=== PATIENT | female | born 1990 | race Caucasian/White ===

== ENCOUNTER 2020-09-20 09:49 | Outpatient (CLI) | payer OTHER, SELFPAY ==
[2020-09-20 10:24] LABS: Basophils Percent Auto 0.1 % (0.2-1.2); Eosinophils Absolute Auto 0.1 K/mm3 (0-0.3); Eosinophils Percent Auto 1.5 % (0-4.4); Hematocrit 41.4 % (37.0-47.0); Immature Granulocyte Absolute 0.01 K/mm3 (0.00-0.031); Immature Granulocyte Percent A 0.1 % (0-0.5); Lymphocytes Absolute Auto 2.74 K/mm3 (0.9-3.2); Lymphocytes Percent Auto 34.8 % (18.3-44.2); Mean Corpuscular HGB Conc 33.8 g/dl (32-36); Mean Corpuscular Hemoglobin 29.6 pg (26-34); Mean Corpuscular Volume 87.5 fl (80-100); Mean Platelet Volume 9.7 fl (7.4-10.4); Monocytes Absolute Auto 0.5 K/mm3 (0.1-0.6); Monocytes Percent Auto 6.6 % (2.6-8.5); Neutrophils Absolute Auto 4.5 K/mm3 (1.3-6.7); Neutrophils Percent Auto 56.9 % (45.5-73.1); Platelet Count Result 354 k/mm3 (150-375); Red Blood Count 4.73 M/mm3 (4.2-5.4); Red Cell Distribution Width 11.7 % (11.5-14.5); White Blood Count 7.9 K/mm3 (4.5-10.0)
[2020-09-20 10:50] LABS: Cholesterol 237 mg/dL (0-200); HDL Direct 40 mg/dL; Triglycerides 236 mg/dL (<150)
[2020-09-20 10:55] LABS: Alanine Aminotransferase 34 U/L (4-35); Albumin Level 4.2 g/dL (3.5-5.1); Alkaline Phosphatase 56 U/L (38-126); Anion Gap 7 mmol/L (8-16); Aspartate Amino Transferase 33 U/L (14-36); Bilirubin,Total 0.7 mg/dL (0.2-1.3); Blood Urea Nitrogen 9 mg/dL (7-17); Calcium 8.9 mg/dL (8.4-10.2); Carbon Dioxide 27 mmol/L (22-30); Chloride 105 mmol/L (98-107); Estimated Glomerular Filt Rate > 60; Glucose 91 mg/dL (65-105); Potassium 4.4 mmol/L (3.4-5.0); Sodium 139 mmol/L (137-145)
[2020-09-20 11:01] LABS: LDL Cholesterol Direct 141 mg/dL
[2020-09-24 06:35] LABS: Prolactin 7.3 ng/mL (***)
== END 2020-09-20 09:50 | disposition home or self-care (01) ==
PROVIDERS: PCP Nurse Practitioner; Referring Provider Nurse Practitioner; Visit Provider Nurse Practitioner Obstetrics & Gynecology
DX: N93.9 Abnormal uterine and vaginal bleeding, unspecified (principal)
CPT/HCPCS: 36415; 80053; 80061; 82306; 84146; 84443; 85025

== ENCOUNTER → 2021-01-11 03:31 | Outpatient (CLI) | payer OTHER, SELFPAY ==
[2021-01-11 19:46] LABS: SARS-CoV-2 RNA PCR Negative
== END ==
PROVIDERS: PCP Emergency Medicine; Visit Provider Obstetrics & Gynecology
DX: Z01.812 Encounter for preprocedural laboratory examination (principal); Z20.822 Contact with and (suspected) exposure to COVID-19
CPT/HCPCS: C9803; U0003; U0005

== ENCOUNTER 2021-01-15 01:23 | Day surgery (SDC) | payer OTHER, SELFPAY ==
[2021-01-01 15:13] VITALS: BMI 35.9
[2021-01-15] VITALS (8 sets, daily range): BP systolic 112–147; BP diastolic 60–91; PULSE 63–84; RESP 12–21; TEMP 36.3–36.5; O2SAT 95–100
--- NOTE | 2021-01-15 08:22 | P.PNAN_ITS ---
Anes - Initial Pre Proc Eval Procedure: Operation Date: 01/15/21 09:30 Proposed Procedures p Laparoscopic Bilateral Salpingectomy, Hysteroscopy with Nelly Endometrial Ablation - Virginia Cohen MD Date/Time: 01/15/21 08:22 Surgeon: Virginia Cohen MD Pre Op Diagnosis: Menorrhagia Patient Data Age: 30 Gender: F Height: 5 ft 5 in Weight: 97.98 kg Allergies Allergy/AdvReac Type Severity Reaction Status Date / Time No Known Allergies Allergy Unverified 01/15/21 07:46 Home Medications Medication Instructions Recorded Confirmed Type loratadine [Claritin] 10 mg PO DAILY PRN 01/01/21 01/15/21 History cqftmfauosqv-Ku-wrnv-minerals 1 tablet PO DAILY 01/01/21 01/15/21 History [Women's Daily Multivitamin] turmeric 400 mg PO 3XW 01/01/21 01/15/21 History Patient hx anesthesia problems: none Family hx anesthesia problems: none [facility] Past Medical History Medical History (Updated 01/15/21 @ 08:22 by Pato Patel MD) Obesity Surgical History Surgical History (Updated 01/15/21 @ 08:24 by Pato Patel MD) History of cholecystectomy Social History Social History Smoking packs per day: 0.5 Smoking cigarettes per day: 10.0 Years smoked: 7 Smoking pack-years: 3.50 Smoking status: Former smoker Tobacco type: cigarettes Smoking end date: 01/02/14 Alcohol intake: current Drinks per week: 6 Alcohol use details: [employer] Substance use: never Living arrangements: with family Spiritual care concerns: No Anes - Eval Final PreProcedure Day of Procedure 01/15/21 08:22 Patient weight: obese Heart: regular rate and rhythm Lungs: clear to auscultation Airway: Mallampati scale class II Neurological: alert and oriented Last oral intake: >/= 8 hours ASA classification: II Emergent: no Anesthetic plan: proceed Anesthesia type and monitoring: general ETT and standard monitoring Informed Consent: The patient's anesthetic plan and its attendant risks and benefits were discussed with the patient/family/POA. Questions were solicited and answers provided to the satisfaction of the patient/family/POA.
--- NOTE | 2021-01-15 08:24 | WPDHPUPDATE1 ---
History and Physical Update Update Date/Time: 01/15/21 08:24 History and Physical has been reviewed, including an updated exam of the patient. There are NO changes in the patient's condition. Risks, benefits, and alternatives have been discussed and questions answered. Patient agrees to proceed with procedure.
[2021-01-15] MEDS: ACETAMINOPHEN 500 MG TABLET 1000 MG PO (08:28)
[2021-01-15] MEDS: LACTATED RINGERS 1,000 ML 30 ML IV CONT ×2 (08:30→10:45)
[2021-01-15] MEDS: KETOROLAC 15 MG/ML VIAL (*BKC) IV PUSH (08:35)
--- NOTE | 2021-01-15 10:02 | SUR.OPER ---
noted right front tooth has chip prior to intubation.
--- NOTE | 2021-01-15 10:53 | PM.PROC ---
Procedure Note - Detailed Date of procedure: 01/15/21 Pre-op diagnosis: Menorrhagia Post-op diagnosis: same Procedure performed: Laparoscopic bilateral salpingectomy, Endometrial Ablation with Hysteroscopy Description of procedure: Patient was taken the operating room. She has prepped draped in the dorsal lithotomy position after induction of general anesthesia. A 5 mm abdominal incision was made in left upper quadrant of the abdomen with scalpel. A 5 mm trocars inserted the intra-abdominal cavity under direct visualization of the scope. Pneumoperitoneum was achieved. A 5 mm periumbilical incision was made using a scalpel on the abdominal scan. A 5 mm trocar was inserted the intra-abdominal cavity under visualization of the scope. A 5 mm incision made left lower quadrant of the abdomen. A 5 mm trocar was inserted the intra-abdominal cavity and direct visualization of the scope. The bilateral fallopian tubes were removed. The paratubal tissue in the area of the uterus was grasped with the LigaSure cautery and transected after being cauterized. The paratubal tissue from the ovary to the uterine cornu was cauterized and transected with LigaSure cautery. This was all done in a bilateral fashion. The tube was transected at the area of the uterine cornua and the tubes was removed through the 5 mm trocar site. Our attention was then turned to the endometrial ablation portion of the procedure. A speculum was placed in the vagina. The cervix was grasped with a tenaculum. The cervix was dilated to approximately 8 mm with Morley dilators. The hysteroscope was inserted. And the below findings were noted. Measurements of the cervix were taken using the uterine sound and the hysteroscope. The intrauterine cavity measurements were entered into the hand piece of the device. The device was inserted the intrauterine cavity. The array was expanded. The balloon cuff was inflated. The uterus was airtight. The energy and safety cycles within initiated. They were completed under 3 minutes. The balloon cuff was collapsed, the array was collapsed, and the device was removed the uterine cavity. the hysteroscope was reinserted and the cavity was well desiccated, it was clearly observed. Hysteroscope was withdrawn. The tenaculum was removed. The speculum was removed. The patient tolerated the procedure well. She was taken to recover room in stable condition. Anesthesia: GETA Surgeon: Virginia Cohen MD Estimated blood loss (mL): 10 Drains: No Packing: No Pathology: none sent Complications: No immediate complications Condition: stable Disposition: PACU Findings: Normal female pelvic anatomy.
[2021-01-15] MEDS: HYDROmorphone HCL INJ (*CRX) 1 MG/ML SYR 0.25 MG IV PUSH ×3 (10:54→11:14)
[2021-01-15] MEDS: oxyCODONE HCL (*CRX) 5 MG TAB IR PO (11:59)
--- NOTE | 2021-02-01 10:11 | PM.IMHP ---
H&P: HPI History of Present Illness Date/Time: 02/01/21 10:11 this patient is a 31-year-old female with severe menorrhagia and unwanted fertility. We have agreed to perform endometrial ablation and laparoscopic bilateral tubal ligation. Patient understands the procedure. She understands there are risks. She understands that injuries may occur that result in hospitalization, more surgery, and severe illness. Chief Complaint: heavy vaginal bleeding Review of Systems Constitutional: Constitutional: Reports no additional constitutional complaints, Denies fatigue, Denies headache(s), Denies lethargy and Denies weakness Eyes: Eyes: Reports no additional eye complaints, Denies blurry vision and Denies photophobia ENT: Reports as per HPI, Denies headache(s) and Denies neck pain Cardiovascular: Cardiovascular: Denies chest pain, Denies diaphoresis, Denies leg edema, Denies palpitations and Denies dyspnea Respiratory: Respiratory: Denies hemoptysis, Denies dyspnea and Denies wheezing Gastrointestinal: Gastrointestinal: Denies abdominal pain, Denies melena, Denies bloating, Denies hematochezia, Denies nausea and Denies vomiting Genitourinary: Genitourinary: Reports no additional female genitourinary complaints Musculoskeletal: Musculoskeletal: Denies joint swelling, Denies neck pain, Denies numbness and Denies stiffness Neurologic: Denies Abnormal speech present, Denies confusion, Denies headache(s), Denies numbness and Denies weakness Psychiatric: Psychiatric: Denies anxiety, Denies confusion, Denies depression, Denies homicidal ideation and Denies suicidal ideation Endocrine: Endocrine: Denies fatigue and Denies palpitations Allergic/Immunologic: Allergic/Immunologic: Denies wheezing [facility] Past Medical History Medical History (Updated 02/01/21 @ 10:13 by Virginia Cohen MD) Obesity Surgical History Surgical History (Updated 01/15/21 @ 08:24 by Pato Patel MD) History of cholecystectomy Social History Social History Smoking packs per day: 0.5 Smoking cigarettes per day: 10.0 Years smoked: 7 Smoking pack-years: 3.50 Smoking status: Former smoker Tobacco type: cigarettes Smoking end date: 01/02/14 Alcohol intake: current Drinks per week: 6 Alcohol use details: [employer] Substance use: never Living arrangements: with family Spiritual care concerns: No Meds Home Medications and Allergies Home Medications Medication Instructions Recorded Confirmed Type loratadine [Claritin] 10 mg PO DAILY PRN 01/01/21 01/15/21 History lbmrtgxbopsc-Kw-efrc-minerals 1 tablet PO DAILY 01/01/21 01/15/21 History turmeric 400 mg PO 3XW 01/01/21 01/15/21 History hydrocodone-acetaminophen 1 - 2 tablet PO Q4H PRN #10 tablet 01/15/21 Rx Allergies Allergy/AdvReac Type Severity Reaction Status Date / Time No Known Allergies Allergy Unverified 01/15/21 07:46 Exam Const: General: healthy appearing, comfortable and no acute distress; No confusion Orientation/consciousness: No confusion Eyes: Direct Ophthalmoscopy: No photophobia Resp: Auscultation: clear to auscultation bilaterally, no rales, no rhonchi and no wheezes Cardio: Rate: regular rate Heart sounds: no click, no murmurs and no rubs GI: Inspection: non-distended GI Palp: No abdominal tenderness Auscultation: normal bowel sounds Neuro: General: No confusion Speech: No Abnormal speech present Extrem: General: normal to inspection, no pedal edema and no calf tenderness Assessment and Plan Assessment and plan (1) Menorrhagia: Code(s): N92.0 - Excessive and frequent menstruation with regular cycle Status: Acute (2) Unwanted fertility: Code(s): Z30.09 - Encounter for other general counseling and advice on contraception Status: Acute Additional Plan this patient is a 31-year-old female with severe menorrhagia and unwanted fertility.
== END 2021-01-15 13:05 | disposition home or self-care (01) ==
PROVIDERS: PCP Nurse Practitioner; Visit Provider Obstetrics & Gynecology
PROC: 0UDB8ZZ Extraction of Endometrium, Via Natural or Artificial Opening Endoscopic (ICD-10-PCS; CPT 58558; principal; 2021-01-15 09:30)
DX: N92.0 Excessive and frequent menstruation with regular cycle (principal); E66.9 Obesity, unspecified; Z68.36 Body mass index [BMI] 36.0-36.9, adult
CPT/HCPCS: 58563; 58661; 88302; 88305; A9270; J0330; J1100; J1170; J1885; J2250; J2405; J2704; J3010; J7030; J7120

== ENCOUNTER 2021-03-27 16:19 | Outpatient (CLI) | payer OTHER, SELFPAY ==
--- NOTE | ~2021-03-27 | XR_ITS ---
EXAMINATION: XR foot RT min 3V DATE: 03/27/2021 17:02 INDICATION: Bump on the first and second metatarsals post injury TECHNIQUE: Dorsoplantar, two oblique and lateral views of the right foot were obtained. COMPARISON: None. FINDINGS: Alignment is normal. No fracture. Mild osteoarthritis at the first metatarsophalangeal joint. Remaini ng joint spaces are normal. Achilles and plantar calcaneal spurs with additional small enthesophyte a t the distal tip of the lateral malleolus. Couple small heterotopic ossicles near the tip of the medi al malleolus. Focal soft tissue swelling dorsal to the metatarsals. IMPRESSION: 1. No acute osseous abnormality. 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
== END 2021-03-27 16:20 | disposition home or self-care (01) ==
LOC: ANHIMG 16:23
PROVIDERS: PCP Nurse Practitioner; Visit Provider Nurse Practitioner
DX: M77.31 Calcaneal spur, right foot (principal); M19.071 Primary osteoarthritis, right ankle and foot; M79.89 Other specified soft tissue disorders
CPT/HCPCS: 73630

== ENCOUNTER 2021-08-23 10:35 | Emergency (ER) | payer OTHER, SELFPAY ==
--- NOTE | ~2021-08-23 | XR_ITS ---
EXAMINATION: XR thoracic spine 3V DATE: 08/23/2021 13:23 INDICATION: Upper back pain. TECHNIQUE: 3 views of thoracic spine were obtained. COMPARISON: None. FINDINGS: There is 7 degrees levocurvature of thoracic spine. Vertebral body heights are normal. Ther e is mildly decreased disc height at multiple levels in mid thoracic spine. There are endplate osteop hytes at most levels. IMPRESSION: 1. Mild thoracic spondylosis. 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
--- NOTE | ~2021-08-23 | XR_ITS ---
EXAMINATION: XR_CERV2-3V_CR DATE: 08/23/2021 13:23 INDICATION: Neck pain. TECHNIQUE: 4 views of cervical spine were obtained. COMPARISON: None. FINDINGS: There is 5 degrees levocurvature of cervicothoracic spine. Vertebral body heights are darwin l. There is mildly decreased disc height at C6-C7. The facet joints are unremarkable. No central ang l stenosis or prevertebral soft tissue swelling. IMPRESSION: 1. Mild degenerative disc disease at C6-C7. 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 [employer] [facility]
[2021-08-23 10:49] VITALS: BP 148/95; PULSE 76; RESP 14; TEMP 36.9; O2SAT 100
--- NOTE | 2021-08-23 12:55 | ED.GENADULT ---
HPI - General Adult General Chief complaint: Neck Pain/Injury Stated complaint: neck pain Time Seen by Provider: 08/23/21 12:05 Source: patient Mode of arrival: ambulatory Limitations: no limitations History of Present Illness HPI narrative: Patient presents for evaluation of new neck/back pain for the last 4 days. She indicates she woke from sleep with her symptoms believe she slept on it wrong . She usually sleeps in prone position with her arm beneath her. She usually wakes from sleep throughout the night a few times with the sensation that her arm is asleep . She states her pain is constant, although she did experience relief yesterday. She states she had recurrence of her pain this morning which has persisted since that time. She describes the pain as a pinched nerve . Her pain is severe. She has some radiation into proximal aspect of LUE. Movement makes her symptoms worse. She has not tried any therapies to assist with her symptoms. Related Data Home Medications Medication Instructions Recorded Confirmed loratadine [Claritin] 10 mg PO DAILY PRN 01/01/21 01/15/21 dcmpmritfhvk-Jm-sajm-minerals 1 tablet PO DAILY 01/01/21 01/15/21 turmeric 400 mg PO 3XW 01/01/21 01/15/21 Allergies Allergy/AdvReac Type Severity Reaction Status Date / Time No Known Allergies Allergy Verified 08/23/21 11:58 Review of Systems Review of Systems: CONSTITUTIONAL: Denies fever, chills, or sweats. EYES: Denies visual changes, redness, or discharge. ENT: Denies rhinorrhea, congestion, sore throat, or otalgia. CARDIOVASCULAR: Denies chest pain, palpitations, or edema. RESPIRATORY: Denies cough or dyspnea. GASTROINTESTINAL: Denies abdominal pain, nausea, vomiting, or diarrhea. GENITOURINARY: Denies dysuria or hematuria. SKIN: Denies rash or itching. MUSCULOSKELETAL: Reports neck pain and back pain. NEUROLOGIC: Denies headache, numbness, dizziness, or weakness. PSYCHIATRIC: Denies anxiety or depression. [facility] Past Medical History Medical History (Updated 08/23/21 @ 14:23 by Joao Nixon, BLU, BC) Obesity Surgical History Surgical History History of cholecystectomy History of tubal ligation Family History Family History Mother No pertinent past medical history Social History Social History Smoking packs per day: 0.5 Smoking cigarettes per day: 10.0 Years smoked: 7 Smoking pack-years: 3.50 Smoking status: Former smoker Tobacco type: cigarettes Smoking end date: 01/02/14 Alcohol intake: current Drinks per week: 6 Alcohol use details: [employer] Substance use: never Spiritual care concerns: No Exam Narrative: GENERAL: Well-appearing, well-nourished, and in no acute distress. HEAD: Normocephalic, atraumatic. EYES: PERRLA and EOMI. ENT: Nares clear, no rhinorrhea or epistaxis. Mucous membranes moist. Oropharynx without tonsillar hypertrophy exudate or other lesions. Bilateral TMs pearly hernández nonbulging NECK: Supple. No adenopathy or masses. No carotid bruits or JVD. Tenderness in left trapezius. No tenderness in midline of cervical spine CHEST: Clear to auscultation. No respiratory distress. No wheezes rales or rhonchi HEART: Regular rate and rhythm. No murmur heard. Normal peripheral pulses. ABDOMEN: Soft, nontender, nondistended, normal active bowel sounds. EXTREMITIES: Normal range of motion. No edema. BACK: Tenderness noted over musculature overlying left posterior ribs and in paraspinous muscles of thoracic spine on left SKIN: Warm, dry, no rash. NEURO: No focal deficits. Alert and oriented x3. PSYCH: Normal mood and affect. Course Course Emergency Course: This is a 31-year-old female who presented with complaints of neck pain. X-ray showed degenerative changes. She was given Toradol and F
[2021-08-23] MEDS: CYCLOBENZAPRINE HCL 10 MG TABLET PO (13:47)
[2021-08-23] MEDS: KETOROLAC (*BKC) 60 MG/2 ML VIAL IM (13:47)
[2021-08-23 14:45] VITALS: BP 126/89; PULSE 78; RESP 16; O2SAT 100
== END 2021-08-23 14:46 | disposition home or self-care (01) ==
PROVIDERS: Emergency Provider Nurse Practitioner
DX: M54.2 Cervicalgia (principal); M79.10 Myalgia, unspecified site; E66.9 Obesity, unspecified; Z87.891 Personal history of nicotine dependence; M47.814 Spondylosis without myelopathy or radiculopathy, thoracic region; M50.323 Other cervical disc degeneration at C6-C7 level
CPT/HCPCS: 72040; 72072; 96372; 99283; A9270; J1885

== ENCOUNTER 2021-11-05 16:49 | Emergency (ER) | payer OTHER, SELFPAY ==
[2021-11-05 17:02] VITALS: BP 147/87; PULSE 74; RESP 16; TEMP 36.2; O2SAT 100
[2021-11-05 17:20] LABS: Basophils Percent Auto 0.1 % (0.2-1.2); Eosinophils Absolute Auto 0.2 K/mm3 (0-0.3); Eosinophils Percent Auto 2.1 % (0-4.4); Hematocrit 41.3 % (37.0-47.0); Hemoglobin 13.8 g/dL (12.0-15.0); Immature Granulocyte Absolute 0.03 K/mm3 (0.00-0.031); Immature Granulocyte Percent A 0.3 % (0-0.5); Lymphocytes Absolute Auto 2.56 K/mm3 (0.9-3.2); Lymphocytes Percent Auto 25.7 % (18.3-44.2); Mean Corpuscular HGB Conc 33.4 g/dl (32-36); Mean Corpuscular Hemoglobin 28.7 pg (26-34); Mean Corpuscular Volume 85.9 fl (80-100); Mean Platelet Volume 9.7 fl (7.4-10.4); Monocytes Absolute Auto 0.6 K/mm3 (0.1-0.6); Monocytes Percent Auto 5.6 % (2.6-8.5); Neutrophils Absolute Auto 6.6 K/mm3 (1.3-6.7); Neutrophils Percent Auto 66.2 % (45.5-73.1); Platelet Count Result 403 k/mm3 (150-375); Red Blood Count 4.81 M/mm3 (4.2-5.4)
[2021-11-05 17:31] LABS: Alanine Aminotransferase 48 U/L (4-35); Albumin Level 4.7 g/dL (3.5-5.1); Alkaline Phosphatase 67 U/L (38-126); Anion Gap 9 mmol/L (8-16); Aspartate Amino Transferase 43 U/L (14-36); Bilirubin,Total 0.8 mg/dL (0.2-1.3); Blood Urea Nitrogen 10 mg/dL (7-17); Calcium 9.1 mg/dL (8.4-10.2); Carbon Dioxide 25 mmol/L (22-30); Chloride 104 mmol/L (98-107); Estimated CRCL calculation 131 ml/min; Estimated Glomerular Filt Rate > 60; Glucose 101 mg/dL (65-110); Lipase 61 U/L (23-300); Potassium 4.1 mmol/L (3.4-5.0); Sodium 138 mmol/L (137-145)
[2021-11-05 17:37] VITALS: BP 136/92; PULSE 68; RESP 18; O2SAT 99
--- NOTE | 2021-11-05 18:45 | ED.ABDPAIN ---
HPI - Abdominal Pain General Chief Complaint: Abdominal Pain Stated Complaint: abd pain x 2 weeks Time Seen by Provider: 11/05/21 17:41 Source: patient, family and RN notes reviewed Mode of arrival: ambulatory Limitations: no limitations History of Present Illness HPI narrative: 31-year-old female presented to the emergency department for evaluation of 2 weeks of upper abdominal pain with associated nausea without vomiting. Patient reports he does have a history of GERD but does not take any medications for this. Patient denies any recent heavy use of NSAIDs. Patient denies any recent heavy alcohol consumption. Patient denies any hematemesis or hematochezia. Patient denies any prior history of ulcers. Related Data Home Medications Medication Instructions Recorded Confirmed loratadine [Claritin] 10 mg PO DAILY PRN 01/01/21 01/15/21 tesfwonhrazz-Tg-vzmy-minerals 1 tablet PO DAILY 01/01/21 01/15/21 turmeric 400 mg PO 3XW 01/01/21 01/15/21 Allergies Allergy/AdvReac Type Severity Reaction Status Date / Time No Known Allergies Allergy Verified 11/05/21 19:22 Review of Systems Review of Systems: CONSTITUTIONAL: Denies fever, chills, or sweats. EYES: Denies visual changes, redness, or discharge. ENT: Denies rhinorrhea, congestion, sore throat, or otalgia. CARDIOVASCULAR: Denies chest pain, palpitations, or edema. RESPIRATORY: Denies cough or dyspnea. GASTROINTESTINAL: Upper abdominal pain with associated nausea without vomiting GENITOURINARY: Denies dysuria or hematuria. SKIN: Denies rash or itching. MUSCULOSKELETAL: Denies back pain, joint pain, or myalgia. NEUROLOGIC: Denies headache, numbness, or weakness. All systems reviewed & are unremarkable except as noted in HPI and below PMFSH Past Medical History Medical History (Updated 11/08/21 @ 12:35 by David Blount MD) Obesity Surgical History Surgical History History of cholecystectomy History of tubal ligation Family History Family History Mother No pertinent past medical history Social History Social History Smoking packs per day: 0.5 Smoking cigarettes per day: 10.0 Years smoked: 7 Smoking pack-years: 3.50 Smoking status: Former smoker Tobacco type: cigarettes Smoking end date: 01/02/14 Alcohol intake: current Drinks per week: 6 Alcohol use details: [employer] Substance use: never Spiritual care concerns: No Exam Narrative: APPEARANCE: Well appearing, no pain, no distress, well-nourished. HEAD: normocephalic, atraumatic. EYES: PERRLA/EOMI, conjunctivae clear. NOSE: Normal no drainage NECK: Supple. No adenopathy, no masses. RESPIRATORY: Airway patent, respirations nonlabored. Clear to auscultation bilaterally, no rales, rhonchi, wheezing. CARDIOVASCULAR: Regular rate and rhythm without murmurs rubs or gallops. ABDOMINAL: Benign abdominal exam. Some epigastric tenderness to palpation. MUSCULOSKELETAL: Moves all extremities. Strength/ROM intact, No edema, No calf tenderness. NEURO: Alert. Cranial nerves II through XII intact. Grossly intact SKIN: Warm, dry. Normal Color Course Course Emergency Course: Patient did feel improved with treatment with a GI cocktail. Patient was also started on Protonix. Patient was updated on the results of her work-up and plan for home treatment. Patient was also encouraged to have close follow-up with GI. All questions and concerns were addressed. Vital Signs Vital signs: Vital Signs Temperature 97.1 F L 11/05/21 17:02 Pulse Rate 74 11/05/21 17:02 Respiratory Rate 16 11/05/21 17:02 Blood Pressure 147/87 H 11/05/21 17:02 Pulse Oximetry 100 11/05/21 17:02 Temperature 97.1 F L 11/05/21 17:02 Pulse Rate 65 11/05/21 21:53 Respiratory Rate 18 11/05/21 21:53 Blood Pre
[2021-11-05] MEDS: SODIUM CHLORIDE 0.9% IV 1,000 ML 999 ML IV CONT (19:02)
[2021-11-05] MEDS: ONDANSETRON INJ 4 MG/2 ML VIAL IV PUSH (19:02)
[2021-11-05 19:20] VITALS: BP 124/85; PULSE 82; RESP 16; O2SAT 99
[2021-11-05] MEDS: BELLADONNA ALK/PHENOB ELIX 10 ML, MAG HYDROX/ALUMINUM HYD/SIMETH 30 ML, LIDOCAINE HCL 2... PO (19:31)
[2021-11-05 19:32] LABS: Add Urine Microscopic? YES; Appearance Urine Cloudy (Clear); Bacteria Urine Trace /hpf; Bilirubin Urine Negative (Negative); Blood Urine Negative (Negative); Color Urine Yellow (Yellow); Glucose Urine UA Negative (Negative); Ketones Urine Negative (Negative); Leukocyte Esterase Ur Negative LEU/UL (Negative); Nitrate Urine Negative (Negative); Protein Urine Negative (Negative); Specific Grav Ur 1.015 (1.001-1.035); Squamous Epithelial Cell Urine Few /hpf (Few); Urobilinogen Urine Negative mg/dL (<2.0); WBC Urine 0-3 /hpf
[2021-11-05] MEDS: PANTOPRAZOLE SODIUM IV 40 MG VIAL IV PUSH (20:59)
[2021-11-05] MEDS: ACETAMINOPHEN 500 MG TABLET 1000 MG PO (20:59)
[2021-11-05] MEDS: KETOROLAC 15 MG/ML VIAL (*BKC) IV PUSH (21:19)
[2021-11-05 21:53] VITALS: BP 122/64; PULSE 65; RESP 18; O2SAT 99
== END 2021-11-05 21:54 | disposition home or self-care (01) ==
PROVIDERS: Emergency Provider Emergency Medicine
DX: K29.70 Gastritis, unspecified, without bleeding (principal); K21.9 Gastro-esophageal reflux disease without esophagitis; E66.9 Obesity, unspecified; Z68.35 Body mass index [BMI] 35.0-35.9, adult; Z87.891 Personal history of nicotine dependence
CPT/HCPCS: 36415; 80053; 81001; 81025; 83690; 85025; 96365; 96366; 96375; 99284; A9270; C9113; J1885; J2405; J7030; J7060

== ENCOUNTER 2024-02-23 20:49 | Emergency (ER) | payer OTHER, SELFPAY ==
--- NOTE | ~2024-02-23 | CT_ITS ---
EXAMINATION: CT abdomen pelvis w con DATE: 02/23/2024 22:11 INDICATION: Right lower quadrant abdominal pain. Right flank tenderness. TECHNIQUE: Computed tomography (CT) of the abdomen and pelvis was performed with 100 mL Omnipaque 350 intravenous contrast. Automated exposure control and iterative reconstruction technique were employe d. The dose-length product was 1239.68 mGy-cm. COMPARISON: None. FINDINGS: The visualized portions of the lung bases demonstrate mild atelectasis. No pleural effusion . The heart size is normal. No pericardial effusion. There is diffuse hepatic steatosis. The spleen i s normal. The gallbladder is absent. The pancreas, adrenal glands, and kidneys are normal. There are no dilated loops of bowel. The appendix is normal. There is a supraumbilical ventral hernia containin g fat. There are no pathologically enlarged lymph nodes. There is no free intraperitoneal fluid. Ther e is mild lumbar spondylosis. IMPRESSION: 1. Supraumbilical ventral hernia containing fat. 2. Diffuse hepatic steatosis. Reviewed, dictated and finalized at location E.
[2024-02-23 20:55] VITALS: BP 129/57; PULSE 70; RESP 16; TEMP 36.6; O2SAT 99
--- NOTE | 2024-02-23 21:01 | ED.ABDPAIN ---
HPI - Abdominal Pain General Chief Complaint: Abdominal Pain Stated Complaint: RLQ pain Time Seen by Provider: 02/23/24 21:00 Source: patient Mode of arrival: ambulatory Limitations: no limitations History of Present Illness HPI narrative: This is a 34-year-old female who presents to the ED with chief complaint of abdominal pain Times 2-3 days. Reports that it has localized to the right lower quadrant. Reports it is worsening and becoming more consistent. She has history of ovarian cysts and has had pain with these before but today feels different. specifically worse with certain movements. No specific alleviating factors. Denies N/V/ D. Denies fevers, chills, chest pain, shortness of breath, GI bleeding symptoms, urinary symptoms. Denies vaginal symptoms. Surgical history of tubal ligation, cholecystectomy Related Data Home Medications Medication Instructions Recorded Confirmed loratadine 10 mg tablet (Claritin) 10 mg PO DAILY PRN Congestion 01/01/21 01/15/21 miyjvchwaixc-Fc-epyv-minerals 18 1 tablet PO DAILY 01/01/21 01/15/21 mg-0.4 mg tablet turmeric 400 mg capsule 400 mg PO 3XW 01/01/21 01/15/21 Allergies Allergy/AdvReac Type Severity Reaction Status Date / Time No Known Allergies Allergy Verified 11/05/21 19:22 Review of Systems Review of Systems: All systems as dictated in [facility] Past Medical History Medical History (Updated 02/23/24 @ 23:34 by Sandeep Patterson PA-C) Obesity Surgical History Surgical History History of cholecystectomy History of tubal ligation Family History Family History Mother No pertinent past medical history Social History Social History Smoking packs per day: 0.5 Smoking cigarettes per day: 10.0 Years smoked: 7 Smoking pack-years: 3.50 Smoking status: Former smoker Tobacco type: cigarettes Smoking end date: 01/02/14 Alcohol intake: current Drinks per week: 6 Alcohol use details: [employer] Substance use: never Living arrangements: with family Spiritual care concerns: No Exam Narrative: GENERAL: Well-appearing, well-nourished, and in no acute distress. HEAD: Normocephalic, atraumatic. EYES: PERRLA and EOMI. ENT: Nares clear, no rhinorrhea or epistaxis. Mucous membranes moist. Oropharynx without tonsillar hypertrophy exudate or other lesions. NECK: Supple. No adenopathy or masses. CHEST: No respiratory distress. Clear to auscultation. No wheezes rales or rhonchi HEART: Regular rate and rhythm. No murmur heard. Normal peripheral pulses. ABDOMEN: right flank tenderness present. Soft, otherwise nontender, nondistended, normal active bowel sounds. MSK: Normal range of motion. No edema. SKIN: Warm, dry, no rash. NEURO: Alert and oriented x4. No focal deficits. PSYCH: Normal mood and affect. Course Vital Signs Vital signs: Vital Signs Temperature 97.8 F 02/23/24 20:55 Pulse Rate 70 02/23/24 20:55 Respiratory Rate 16 02/23/24 20:55 Blood Pressure 129/57 L 02/23/24 20:55 Pulse Oximetry 99 02/23/24 20:55 Temperature 97.8 F 02/23/24 20:55 Pulse Rate 67 02/23/24 23:55 Respiratory Rate 16 02/23/24 23:55 Blood Pressure 132/78 02/23/24 23:55 Pulse Oximetry 100 02/23/24 23:55 MDM - Abdominal Pain MDM Narrative Medical decision making narrative: This is a 34-year-old female who presents to the ED with chief complaint of lower abdominal pain for the past couple of days. Vitals are normal. Exam shows mild right-sided abdominal pain and right flank tenderness. Lab work is grossly unremarkable. UA is negative. CT abdomen pelvis with IV contrast: IMPRESSION: 1. Supraumbilical ventral hernia containing fat. 2. Diffuse hepatic steatosis.. On re-evaluation patient is well-
[2024-02-23 21:40] LABS: Basophils Percent Auto 0.2 % (0.2-1.2); Eosinophils Absolute Auto 0.3 K/mm3 (0-0.3); Eosinophils Percent Auto 2.8 % (0-4.4); Hematocrit 39.8 % (37.0-47.0); Hemoglobin 13.5 g/dL (12.0-15.0); Immature Granulocyte Absolute 0.03 K/mm3 (0.00-0.031); Immature Granulocyte Percent A 0.3 % (0-0.5); Lymphocytes Absolute Auto 4.05 K/mm3 (0.9-3.2); Lymphocytes Percent Auto 42.2 % (18.3-44.2); Mean Corpuscular HGB Conc 33.9 g/dl (32-36); Mean Corpuscular Hemoglobin 28.9 pg (26-34); Mean Corpuscular Volume 85.2 fl (80-100); Mean Platelet Volume 9.7 fl (7.4-10.4); Monocytes Absolute Auto 0.9 K/mm3 (0.1-0.6); Monocytes Percent Auto 8.9 % (2.6-8.5); Neutrophils Absolute Auto 4.4 K/mm3 (1.3-6.7); Neutrophils Percent Auto 45.6 % (45.5-73.1); Platelet Count Result 353 k/mm3 (150-375); Red Blood Count 4.67 M/mm3 (4.2-5.4); Red Cell Distribution Width 11.9 % (11.5-14.5); White Blood Count 9.6 K/mm3 (4.5-10.0)
[2024-02-23 21:49] LABS: Alanine Aminotransferase 65 U/L (6-35); Albumin Level 4.7 g/dL (3.5-5.1); Alkaline Phosphatase 54 U/L (38-126); Anion Gap 10 mmol/L (4-12); Aspartate Amino Transferase 42 U/L (14-36); Bilirubin,Total 0.6 mg/dL (0.2-1.3); Blood Urea Nitrogen 14 mg/dL (7-17); Calcium 9.4 mg/dL (8.4-10.2); Carbon Dioxide 25 mmol/L (22-30); Chloride 104 mmol/L (98-107); Estimated CRCL calculation 96 ml/min; Estimated Glomerular Filt Rate > 60; Glucose 98 mg/dL (65-110); Lipase 65 U/L (23-300); Potassium 3.8 mmol/L (3.4-5.0); Sodium 139 mmol/L (137-145)
[2024-02-23 22:55] LABS: Appearance Urine Clear (Clear); Bilirubin Urine Negative (Negative); Blood Urine Negative (Negative); Color Urine Yellow (Yellow); Glucose Urine UA Negative (Negative); Ketones Urine Negative (Negative); Leukocyte Esterase Ur Negative LEU/UL (Negative); Nitrate Urine Negative (Negative); Protein Urine Negative (Negative); Specific Grav Ur > 1.045 (1.001-1.035); Urobilinogen Urine 0.2 mg/dL (<2.0); pH Urine 7.5 (5.0-9.0)
[2024-02-23 23:23] LABS: Add Urine Microscopic? NO
[2024-02-23 23:55] VITALS: BP 132/78; PULSE 67; RESP 16; O2SAT 100
== END 2024-02-23 23:56 | disposition home or self-care (01) ==
PROVIDERS: Emergency Medicine; Emergency Provider Physician Assistant
DX: R10.31 Right lower quadrant pain (principal); Z87.891 Personal history of nicotine dependence
CPT/HCPCS: 36415; 74177; 80053; 81003; 81025; 83690; 85025; 99284; Q9967

== ENCOUNTER 2025-06-08 21:55 | Emergency (ER) | payer MEDICAID, SELFPAY ==
--- NOTE | ~2025-06-08 | CT_ITS ---
EXAMINATION: CT soft tissue neck wo con DATE: 06/09/2025 02:28 INDICATION: Ingested foreign body. TECHNIQUE: Computed tomography (CT) of the neck was performed without intravenous contrast. Automated exposure control and iterative reconstruction technique were employed. The dose-length product was 455.05 mGy-cm. COMPARISON: None FINDINGS: There are calcifications of the palatine tonsils bilaterally. There are no pathologically enlarged lymph nodes. There is mild mucosal thickening in the paranasal sinuses. The mastoid air cells are normal. There is mild cervical spondylosis. IMPRESSION: 1. No foreign body. Reviewed, dictated and finalized at location E. IMPRESSION: 1. No foreign body.
--- OUTSIDE RECORDS SUMMARY | 2025-06-08 21:58 | XMS_ITS | Clinical Summary ---
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 Primary Care Provider [phone] Allergies No known active allergies Medications amoxicillin-cla vulanate (AUGMENTIN) 875-125 mg per tabletIndicatio ns:Swelling of right upper eyelid,Tenderne ss over frontal sinus Take 1 tablet by mouth 2 (two) times a day for 7 days 14 tablet 05/14/2025 Active Problems No known active problems Encounters Date Type Department Care Team Description 05/14/2025 9:45 AM CDT Office Visit [facility] [address] [id number] Lamar Jo NP Swelling of right upper eyelid (Primary Dx); Tenderness over frontal sinus from Last 3 Months Social History Tobacco Use Types Packs/Day Years Used Date Smoking Tobacco: Never Assessed Comments Unknown Sex and Gender Information Value Date Recorded Sex Assigned at Not on file Legal Sex Female 10:19 AM CDT Gender Identity Not on file Sexual Orientation Not on file Obstetrics History Last Filed Vital Signs Vital Sign Reading Time Taken Comments Blood Pressure 126/83 05/14/2025 9:39 AM CDT Pulse 84 05/14/2025 9:39 AM CDT Temperature 37.3 C (99.1 F) 05/14/2025 9:39 AM CDT Respiratory Rate 20 05/14/2025 9:39 AM CDT Oxygen Saturation 99% 05/14/2025 9:39 AM CDT Inhaled Oxygen Concentration - - Weight 98 kg (216 lb) 05/14/2025 9:39 AM CDT Height - - Body Mass Index - - Plan of Treatment Health Maintenance Due Date Last Done Comments Cervical Cancer Screening 1989 Depression Screening 1989 Hepatitis C Screening 1989 DTaP/Tdap/Td Vaccine (1 - Tdap) 01/24/2000 Varicella Vaccines (1 of 2 - 13+ 2-dose series) 2002 Hepatitis B Screening 2007 Regular Well Visit/Exam 18-64 2007 HPV Vaccines (1 - 3-dose SCD M series) 01/24/2016 Covid-19 Vaccine (3 - 2024-2 6 season) 2025 12/26/2020, 12/05/2020 Influenza Vaccine (#1) 2025 Pneumococcal vaccine <65 Aged Out No longer eligible based on patient's age to complete this topic Insurance [facility] Care Teams Windows System Admin Relationship Specialty Start Date End Date Olinda Wen NP PCP - General Nephrology 05/27/22
[2025-06-08 21:59] VITALS: BP 169/87; PULSE 101; RESP 18; TEMP 36.6; O2SAT 98
--- NOTE | 2025-06-09 01:59 | ED.SKABFB ---
HPI - Skin/Abscess/Foreign Bdy General Chief complaint: Skin/Abscess/Foreign Body Stated complaint: foreign object in throat Time Seen by Provider: 06/09/25 01:47 Source: patient Mode of arrival: ambulatory Limitations: no limitations History of Present Illness HPI narrative: This is a 35-year-old female with history of GERD who presents to the ED for possible swallowed foreign body. Patient states that she was eating shrimp at [employer] and when she is swallowing glass bites she felt something in right throat. She is unsure if she accidentally swallowed a tougher portion of short tail or potentially part of the ski or. She tried drinking entire glass of water with no relief. She states that it has not felt like it has moved at all. She still reports pain with swallowing but is able to tolerate her secretions. Related Data Home Medications ?Medication ?Instructions ?Recorded ?Confirmed ?Last Taken ?Type loratadine 10 mg tablet (Claritin) 10 mg PO DAILY PRN Congestion 01/01/21 01/15/21 01/11/21 History miabgjkaeoys-Ik-nftx-minerals 18 1 tablet PO DAILY 01/01/21 01/15/21 01/08/21 History mg-0.4 mg tablet turmeric 400 mg capsule 400 mg PO 3XW 01/01/21 01/15/21 01/08/21 History Allergies Allergy/AdvReac Type Severity Reaction Status Date / Time No Known Allergies Allergy Verified 06/08/25 22:03 Review of Systems Review of Systems: Gen.: Denies fevers or chills Eyes: Denies eye pain or visual change ENT: Denies congestion Respiratory: Denies shortness of breath or cough CV: Denies chest pain or palpitations GI: Denies abdominal pain nausea, emesis or diarrhea denies burning, urgency, frequency or hematuria Musculoskeletal: Denies back pain or muscle pain Neuro: Denies numbness, tingling, weakness or focal weakness Skin: Denies rash Except as documented, all other systems reviewed and negative PMFSH Past Medical History Medical History Obesity Surgical History Surgical History History of tubal ligation History of cholecystectomy Family History Family History Mother No pertinent past medical history Social History Social History Smoking packs per day: 0.5 Smoking cigarettes per day: 10.0 Years smoked: 7 Smoking pack-years: 3.50 Smoking status: Former smoker Tobacco type: cigarettes Smoking end date: 01/02/14 Alcohol intake: current Drinks per week: 6 Alcohol use details: [employer] Substance use: never Living arrangements: with family Spiritual care concerns: No Exam Narrative: APPEARANCE: No acute distress, nontoxic, resting in bed HEENT: Normocephalic, atraumatic, OMM. No visualized foreign bodies in the posterior oropharynx RESPIRATORY: No respiratory distress CARDIOVASCULAR: Appears well perfused ABDOMINAL: Nondistended MUSCULOSKELETAl: Moves all extremities. No obvious deformities NEURO: Awake and alert. SKIN:: Warm, dry. No rashes lesions or abrasions PSYCHIATRIC: Normal affect/mood, Course Vital Signs Vital signs: Vital Signs Temperature 97.9 F 06/08/25 21:59 Pulse Rate 101 H 06/08/25 21:59 Respiratory Rate 18 06/08/25 21:59 Blood Pressure 169/87 H 06/08/25 21:59 Pulse Oximetry 98 06/08/25 21:59 Oxygen Delivery Room Air 06/08/25 21:59 Temperature 97.9 F 06/08/25 21:59 Pulse Rate 93 06/09/25 03:56 Respiratory Rate 19 06/09/25 03:56 Blood Pressure 163/83 H 06/09/25 03:56 Pulse Oximetry 100 06/09/25 03:56 Oxygen Delivery Room Air 06/08/25 21:59 MDM - Skin/Abscess/Foreign Bdy MDM Narrative Medical decision making narrative: 35-year-old female presenting for concerns for swallowed foreign body. On initial evaluation patient was in acute distress afebrile, hemodynamically stable. She had no palpable masses lateral to the trachea where her symptoms were. She is tolerating secretions at this time. Given potential for swallowed piece of skew were, CT soft tissues of the neck was obtained. This showed no evidence of retained foreign bodies. Patient was educated on symptomatic management. She was advised follow-up with her PCP in the next week for re-evaluation. Patient was agreeable to this plan. Given strict return precautions. Differential Diagnosis Differential diagnosis: Likely other (Swallowed foreign body, globus sensation, laceration) Medical Records Attestation: I reviewed the patient's medical records. Lab Data Attestation: I reviewed the patient's lab results. Labs: Lab Results 06/09/25 Range/Units 02:12 POC Urine HCG, Qual Negative (Negative) Imaging Data Attestation: I personally reviewed and interpreted this imaging study as follows: My impression: CT neck: No noted foreign bodies Radiologist's impression: CT neck: No tonsillar enlargement. Epiglottis is unremarkable. Aero digestive tract is patent. No acute fracture. Upper lungs clear. Discharge Plan Discharge Clinical Impression: Globus sensation Patient Disposition: Home Condition: Stable Instructions: Antibiotic Form Additional Instructions: Take Tylenol and ibuprofen for your symptoms. Follow-up with your PCP in the next week for re-evaluation. Return to the ED for any new or worsening symptoms. Patient Language: Romanian Prescriptions: No Action frbpkomdbgia-Bc-ptqw-minerals 18-0.4 mg Tablet 1 tablet PO DAILY turmeric 400 mg Capsule 400 mg PO 3XW loratadine [Claritin] 10 mg Tablet 10 mg PO DAILY PRN (Reason: Congestion) methylprednisolone [Medrol (Suleman)] 4 mg tablets,dose pack See Rx Instructions .ROUTE .COMPLEX Qty: 21 0RF Rx Instructions: orally per package directions cyclobenzaprine 10 mg tablet 10 mg PO TID PRN (Reason: muscle spasm) Qty: 15 0RF omeprazole 20 mg capsule,delayed release(DR/EC) 20 mg PO DAILY Qty: 14 0RF Follow-up/Referrals: PHYSICIAN,ENSEMBLE MEMBER [Primary Care Provider, Internal Medicine]
[2025-06-09 02:13] LABS: BEDSIDEPREGUCG Negative (Negative)
[2025-06-09 03:00] VITALS: BP 163/83; PULSE 93; RESP 19; O2SAT 100
[2025-06-09 03:56] VITALS: BP 163/83; PULSE 93; RESP 19; O2SAT 100
== END 2025-06-09 03:57 | disposition home or self-care (01) ==
PROVIDERS: Emergency Provider Student in an Organized Health Care Education/Training Program
DX: R09.A2 Foreign body sensation, throat (principal); K21.9 Gastro-esophageal reflux disease without esophagitis; Z90.49 Acquired absence of other specified parts of digestive tract; Z87.891 Personal history of nicotine dependence
CPT/HCPCS: 70490; 81025; 99284